=== PATIENT | male | born 1990 | race Caucasian/White ===

== ENCOUNTER 2016-12-19 11:38 | Emergency (ER) | payer OTHER ==
[~2016-12-19] VITALS: Ht 188 cm; Wt 75.0 kg
[~2016-12-19 11:38] MED LIST: IBUP800T23 PO
[2016-12-19 11:40] VITALS: BP 135/81; PULSE 105; RESP 18; TEMP 98; O2SAT 99
--- NOTE | 2016-12-19 12:21 | PD ---
HPI Chief Complaint: Chest Pain Time Seen by Provider: 12:15 Travel History International Travel<30 days: No Contact w/Intl Traveler<30days: No Traveled to known affect area: No History of Present Illness HPI 26- year old male presents to the ED complaining of intermittent chest pain for the past 1.5 months. He reports that the chest pain is worse in the morning and describes it as a sharp/stabbing pain. He reports the chest pain is exacerbated with movement of his left arm. He states since the pain started he has been taking an aspirin daily. He reports the chest pain does not radiate anywhere. The patient currently does not have chest pain, but when he does it rates it as a 10/10. He reports that he occasionally has pain with inspiration and drinks a beer at night after work. The patient is also complaining of intermittent LLQ pain that started around the same time as the chest pain. In addition, he complains of left ankle pain and numbness for the past 5 months ago after an injury. The patient admits to smoking and occasional THC use. FORMERLY [facility] Social History Alcohol Use: Yes Tobacco Use: Yes Allergies-Medications (Allergen,Severity, Reaction): Coded Allergies: No Known Allergies (Unverified , 12/19/16) Reported Meds & Prescriptions Reported Meds & Active Scripts Active Zantac (Ranitidine HCl) 150 Mg Tab 150 Mg PO BID PRN Diclofenac Sodium DR (Diclofenac Sodium) 75 Mg Tabdr 75 Mg PO BID PRN Review of Systems General / Constitutional: No: Fever, Chills, Weight Gain, Weight Loss, Other Eyes: No: Diploplia, Blurred Vision, Photophobia, Drainage, Redness, Foreign Body Sensation, Pain, Tearing, Blind Spots, Visual changes, Blindness, Other HENT: No: Headaches, Vertigo, Lightheadedness, Sore Throat, Rhinitis, Rhinorrhea, Congestion, Nosebleed, Neck Stiffness, Neck Pain, Masses, Gingival Bleeding, Dental Difficulties, Ear Discharge, Earache, Other Cardiovascular: Positive: Chest Pain or Discomfort, No: Palpitations, Irregular Rhythm, Tachycardia, Diaphoresis, Syncope, Dyspnea on exertion, Varicosities, Edema, Cyanosis, Varicosities, Phlebitis, Claudication, Other Respiratory: Positive: Pleuritic Pain, No: Cough, Shortness of Breath, Wheezing, Sneezing, Orthopnea, Hemoptysis, Stridor, Night Sweats, Other Gastrointestinal: Positive: Abdominal Pain, No: Nausea, Vomiting, Diarrhea, Hematemesis, Hematochezia, Constipation, Changes in Bowel Habits, Indigestion, Dysphagia, Loss of Appetite, Other Genitourinary: No: Urgency, Frequency, Dysuria, Nocturia, Hematuria, Decreased Urinary Output, Oliguria, Hesitancy, Dribbling, Incontinence, Pelvic Pain, Flank Pain, Dyspareunia, Discharge, Dysmenorrhea, Menorrhagia, Metorrhagia, Vaginal Bleeding, Other Musculoskeletal: Positive: Pain, No: Myalgias, Arthralgias, Limited ROM, Weakness, Cramping, Edema, Atrophy, Other Skin: No Rash, No Itching, No Dryness, No Lumps, No Hives, No Change in Pigmentation, No Change in nails, No Alopecia, No Lesions, No Breast Lumps, No Breast Tenderness, No Breast Swelling, No Other Neurologic: No: Weakness, Dizziness, Syncope, Focal Abnormalities, Coordination Problem, Tremor, Ataxia, Headache, Change in Mentation, Slurred Speech, Paresthesia, Incontinence, Seizures, Sensory Disturbance, Other Physical Exam Narrative GENERAL: SKIN: Warm and dry. HEAD: Atraumatic. Normocephalic. EYES: Pupils equal and round. No scleral icterus. No injection or drainage. ENT: No nasal bleeding or discharge. Mucous membranes pink and moist. NECK: Trachea midline. No JVD. CARDIOVASCULAR: Regular rate and rhythm. No S3 or S4, murmurs, gallops, or clicks. RESPIRATORY: No accessory muscle use. Clear to auscultation. Breath sounds equal bilaterally. GASTROINTESTINAL: Tender to palpation in LLQ. Abdomen soft, nondistended. Hepatic and splenic margins not palpable. MUSCULOSKELETAL: Left lower leg edema. Extremities without clubbing, cyanosis. No obvious deformities. Full range of motion of the upper and lower extremities bilaterally. 2+ pulses bilaterally. Patient does have some soft tissue swelling on the posterior aspect of the left leg compared to the right. No obvious bruising or deformity noted. Some varicose veins noted. NEUROLOGICAL: Awake and alert. No obvious cranial nerve deficits. Motor grossly within normal limits. Five out of 5 muscle strength in the arms and legs. Normal speech. PSYCHIATRIC: Appropriate mood and affect; insight and judgment normal. Data Data Last Documented VS Vital Signs Date Time Temp Pulse Resp B/P Pulse Ox O2 Delivery O2 Flow Rate FiO2 12/19/16 12:52 102 12/19/16 12:50 18 127/70 100 Room Air 12/19/16 11:40 98.0 Orders Electrocardiogram (12/19/16 12:22) Complete Blood Count With Diff (12/19/16 12:22) Comprehensive Metabolic Panel (12/19/16 12:22) Troponin I (12/19/16 12:22) Lipase (12/19/16 12:22) Magnesium (Mg) (12/19/16 12:22) Chest, Single Ap (12/19/16 12:22) Us Leg Venous Doppler (12/19/16 12:22) D-Dimer (12/19/16 12:22) Ankle, Limited (Ap&Lat) (12/19/16 ) Labs Laboratory Tests Test 12/19/16 12:55 White Blood Count 7.7 TH/MM3 Red Blood Count 4.87 MIL/MM3 Hemoglobin 15.1 GM/DL Hematocrit 43.4 % Mean Corpuscular Volume 89.0 FL Mean Corpuscular Hemoglobin 30.9 PG Mean Corpuscular Hemoglobin 34.7 % Concent Red Cell Distribution Width 14.2 % Platelet Count 176 TH/MM3 Mean Platelet Volume 9.8 FL Neutrophils (%) (Auto) 69.1 % Lymphocytes (%) (Auto) 19.1 % Monocytes (%) (Auto) 9.2 % Eosinophils (%) (Auto) 1.7 % Basophils (%) (Auto) 0.9 % Neutrophils # (Auto) 5.3 TH/MM3 Lymphocytes # (Auto) 1.5 TH/MM3 Monocytes # (Auto) 0.7 TH/MM3 Eosinophils # (Auto) 0.1 TH/MM3 Basophils # (Auto) 0.1 TH/MM3 CBC Comment DIFF FINAL Differential Comment D-Dimer Quantitative (PE/DVT) LESS THAN 0.19 MG/L FEU Sodium Level 141 MEQ/L Potassium Level 4.0 MEQ/L Chloride Level 105 MEQ/L Carbon Dioxide Level 28.7 MEQ/L Anion Gap 7 MEQ/L Blood Urea Nitrogen 12 MG/DL Creatinine 1.09 MG/DL Estimat Glomerular Filtration 81 ML/MIN Rate Random Glucose 64 MG/DL Calcium Level 9.4 MG/DL Magnesium Level 1.9 MG/DL Total Bilirubin 0.8 MG/DL Aspartate Amino Transf 21 U/L (AST/SGOT) Alanine Aminotransferase 22 U/L (ALT/SGPT) Alkaline Phosphatase 112 U/L Troponin I LESS THAN 0.02 NG/ML Total Protein 7.5 GM/DL Albumin 4.1 GM/DL Lipase 126 U/L MDM Medical Decision Making Medical Screen Exam Complete: Yes Emergency Medical Condition: Yes Medical Record Reviewed: Yes Interpretation(s) CBC & BMP Diagram 12/19/16 12:55 LFTs WNL Lipase WNL Last Impressions Lower Extremity Ultrasound 12/19/16 1222 Signed Impressions: Service Date/Time: Monday, December 19, 2016 12:31 - CONCLUSION: Normal examination. Doroteo Hernandez MD Chest X-Ray 12/19/16 1222 Signed Impressions: Service Date/Time: Monday, December 19, 2016 13:18 - CONCLUSION: No acute cardiopulmonary abnormality is identified. aErl Pascal MD Ankle X-Ray 12/19/16 0000 Signed Impressions: Service Date/Time: Monday, December 19, 2016 13:20 - CONCLUSION: No acute left ankle abnormality is identified. Earl Pascal MD d-dimmer WNL troponin negative Differential Diagnosis Chostochondritis vs cardiac versus muscle strain versus acute on chronic pain versus DVT versus PE Narrative Course 26-year-old male that presents to the ED for evaluation of chest pain and left lower leg swelling. Patient was properly examined and was found to have signs and symptoms which appear to be consistent with muscle pain versus gastritis. Labs and imaging were done. Labs and imaging were negative. Patient was reassured. I do not see any sign of acute at this time. I still believe this is costochondritis versus gastritis. We'll treat for both. Patient was given a prescription for diclofenac sodium and Zantac. Told to avoid alcohol abuse. Follow with PCP. See ED worsening symptoms. Diagnosis Primary Impression: Atypical chest pain Additional Impressions: Leg edema, left Gastritis Qualified Code: K29.20 - Acute alcoholic gastritis without hemorrhage Patient Instructions: General Instructions Additional Instructions: Take medications as prescribed. Follow-up with PCP. See ED worsening symptoms. Use compression stockings. Med/Other Pt SpecificInfo: Prescription(s) given Scripts Ranitidine (Zantac)150 Mg [id number] Mg PO BID PRN (PAIN SCALE 1 TO 10) #20 TAB Ref 0 Prov:Ferrell,Emmanuel J MD 12/19/[address] 75 Mg Tabdr75 Mg PO BID PRN (PAIN SCALE 1 TO 10) #20 TAB Prov:Emmanuel Ferrell MD 12/19/16 Disposition: 01 DISCHARGE HOME Condition: Suleiman Anna Dec 19, 2016 12:21
[2016-12-19 12:50] VITALS: BP 127/70; PULSE 69; RESP 18; O2SAT 100
--- NOTE | 2016-12-19 12:51 | RADRPT ---
EXAM DATE/TIME: 12/19/2016 12:31 [facility] COMPARISON: No previous studies available for comparison. INDICATIONS : Left leg swelling. MEDICAL HISTORY : Left leg pain for two months. shortness of breath. SURGICAL HISTORY : None. ENCOUNTER: Initial ACUITY: 1 day PAIN SCORE: 3/10 LOCATION: Left leg. TECHNIQUE: Venous ultrasound of the leg was performed from the inguinal ligament to the proximal calf. Real-candida e, color Doppler and spectral tracing, compression and augmentation techniques were used. FINDINGS: There is normal compressibility of the deep venous system from the inguinal region to the proximal ca lf. No echogenic clot is seen in the lumen of the common femoral, femoral, popliteal, and posterior tibial veins. There is a normal response of the venous system to proximal and distal augmentation an d respiration. CONCLUSION: Normal examination. Doroteo Hernandez MD on December 19, 2016 at 12:48 Board Certified Radiologist. This report was verified electronically.
[2016-12-19 13:52] LABS: AUTOMATED NEUTROPHIL # 5.3 TH/MM3 (1.8-7.7); BASOPHIL # 0.1 TH/MM3 (0-0.2); BASOPHIL % 0.9 % (0.0-2.0); EOSINOPHIL # 0.1 TH/MM3 (0-0.4); EOSINOPHIL % 1.7 % (0.0-4.0); HEMATOCRIT 43.4 % (39.0-51.0); HEMO FLAGS DIFF FINAL; LYMPH % 19.1 % (9.0-44.0); LYMPHOCYTE # 1.5 TH/MM3 (1.0-4.8); MEAN CORPUSCULAR HEMOGLOBIN 30.9 PG (27.0-34.0); MEAN CORPUSCULAR HGB CONC 34.7 % (32.0-36.0); MONO % 9.2 % (0.0-8.0); NEUT % 69.1 % (16.0-70.0); PLATELET COUNT 176 TH/MM3 (150-450); RED BLOOD COUNT 4.87 MIL/MM3 (4.50-5.90); RED CELL DISTRIBUTION WIDTH 14.2 % (11.6-17.2); WHITE BLOOD COUNT 7.7 TH/MM3 (4.0-11.0)
--- NOTE | 2016-12-19 14:06 | RADRPT ---
EXAM DATE/TIME: 12/19/2016 13:18 [facility] COMPARISON: No previous studies available for comparison. INDICATIONS : Chest pain. MEDICAL HISTORY : None. SURGICAL HISTORY : None. ENCOUNTER: Initial ACUITY: 2 months PAIN SCORE: 10/10 LOCATION: Bilateral chest FINDINGS: Portable AP view of the chest demonstrates a normal-sized cardiac silhouette. No effusion, consolidat ion, or pneumothorax is visualized. The bones and soft tissues demonstrate no acute abnormality. CONCLUSION: No acute cardiopulmonary abnormality is identified. Earl Pascal MD on December 19, 2016 at 14:03 Board Certified Radiologist. This report was verified electronically.
--- NOTE | 2016-12-19 14:19 | RADRPT ---
EXAM DATE/TIME: 12/19/2016 13:20 [facility] COMPARISON: No previous studies available for comparison. INDICATIONS : Left ankle pain. MEDICAL HISTORY : None. SURGICAL HISTORY : None. ENCOUNTER: Initial ACUITY: 4 - 6 months PAIN SCORE: 0/10 LOCATION: Left ankle. FINDINGS: 2 views the left ankle demonstrate no fracture or dislocation. Ankle mortise is intact. Mineralizatio n is within normal limits and there is no significant arthropathy. No soft tissue abnormality or radi opaque foreign body is identified. CONCLUSION: No acute left ankle abnormality is identified. Earl Pascal MD on December 19, 2016 at 14:17 Board Certified Radiologist. This report was verified electronically.
[2016-12-19 14:20] LABS: ALT (GPT) 22 U/L (12-78); ANION GAP 7 MEQ/L (5-15); AST (GOT) 21 U/L (15-37); BICARBONATE 28.7 MEQ/L (21.0-32.0); BLOOD UREA NITROGEN 12 MG/DL (7-18); CHLORIDE 105 MEQ/L (98-107); GLOMERULAR FILTRATION RATE 81 ML/MIN (>89); MAGNESIUM 1.9 MG/DL (1.5-2.5); SODIUM (NA) 141 MEQ/L (136-145)
[2016-12-19 14:21] LABS: ALKALINE PHOSPHATASE 112 U/L (45-117); TOTAL BILIRUBIN ADULT 0.8 MG/DL (0.2-1.0)
[2016-12-19] MEDS ORDERED: DICL75TA PO (14:35)
[2016-12-19] MEDS ORDERED: ZANT150T2 PO (14:35)
--- NOTE | 2016-12-20 11:39 | EKG ---
Date Performed: 12/19/2016 Time Performed: 12:49:42 PTAGE: 26 years EKG: Sinus rhythm NORMAL ECG NO PREVIOUS TRACING DOCTOR: Herman Echeverria Interpretating Date/Time 12/20/2016 11:38:52
== END 2016-12-19 16:08 | disposition home or self-care (01) ==
LOC: NEPC 13:00
DX: R07.89 Other chest pain (principal); R60.0 Localized edema; K29.20 Alcoholic gastritis without bleeding; F10.10 Alcohol abuse, uncomplicated; Z72.0 Tobacco use
CPT/HCPCS: 71010; 73600; 80053; 83690; 83735; 84484; 85025; 85379; 93005; 93971